=== PATIENT | male | born 1940 | race Caucasian/White ===

== ENCOUNTER 2019-02-19 13:17 | Emergency (ER) | payer OTHER ==
--- NOTE | 2019-02-19 14:30 | EDPHY ---
General Time Seen by Provider: 02/19/19 14:29 Narrative: CLINICAL IMPRESSION: Left shoulder pain, right hand pain, contusion and skin tear ASSESSMENT/PLAN: Patient is a 78-year-old male with no significant medical history presents to the emergency department complaining of right hand pain and left shoulder pain after sustaining a fall yesterday. Patient is well-appearing, no acute distress. Left shoulder x-ray revealed moderate AC arthropathy, no evidence of fracture dislocation. Right hand x-ray revealed acute bony abnormality. Based on patient's history, suspect he had a right pinky dislocation and successful relocation. His skin tear was cleansed and dressed prior to splint placement. The patient was placed in an ulnar gutter splint, CMS remained intact. There were no findings today to suggest acute fracture, dislocation, compartment syndrome, gaping wounds or neurovascular compromise. The patient is visiting from [place] however is here for a prolonged stay. I gave him a referral for both ortho and a PCP should he want to establish care here. Return precautions discussed. ED PROCEDURES: Procedure: Splint placement. An ulnar gutter splint was applied. After application of the splint I returned and re-examined the patient. The splint was adequately immobilizing the joint and distal to the splint the patient's circulation and sensation was intact. ED COURSE: 1451: X-rays reviewed, no evidence of fracture or acute bony abnormality of either the right hand or left shoulder. CHIEF COMPLAINT: Right hand pain, left shoulder pain HPI: Patient is a 78-year-old male with no significant medical history who presents to the emergency department complaining of right hand pain and left shoulder pain after sustaining a fall yesterday. Patient is visiting from [place], was walking his daughter's dog when he accidentally got pulled hard from the small dog. The dog pulled him in a direction causing his left shoulder to jerk subsequently causing him to trip and fall onto his right hand. He believes that he could have possibly dislocated his pinky as it did look malaligned, it was relocated without difficulty. Pain increases with flexion and extension. Patient took ibuprofen with mild improvement of his discomfort however was concerned as his right hand became very swollen. Patient did not hit his head, there was no loss of consciousness. He is not on any anti-platelet or anticoagulation. He denies hitting his chest or abdomen on the ground. He denies any neck or back pain. He complains of right lateral hand pain with associated swelling, bruising and a skin tear on his palm. Patient also complains of left shoulder pain from a jerking mechanism, he did not land directly on the shoulder. He has full range of motion however does have some discomfort when he lifts it over his head. Denies any numbness or tingling of his extremities. He is up-to-date on his tetanus status. Denies any other injury or concern. ROS: Otherwise negative, please see HPI. PHYSICAL EXAM: General Appearance: Well-developed, well-appearing and in no acute distress. HEENT: Normocephalic, atraumatic. External ears are normal. Nares are clear, oropharynx is clear and mucosa is moist. Dentition is normal, there is no malocclusion or mandibular tenderness. Neck: Neck is supple with full range of motion, he has no tenderness to palpation of the midline cervical spine or paraspinal muscles. Back: No step-off, palpable bony abnormality, edema, erythema or ecchymosis of the thoracic or lumbar spines. Both the thoracic and lumbar spines are nontender, all spines full range of motion. 5/5 and equal strength of the UEs and LEs bilaterally including shoulder shrug. Pulses: 2+ and equal radial, DP and PT pulses bilaterally. Sensation intact and symmetric to light touch from face, UEs and LEs bilaterally. Straight leg raise negative bilaterally. Respiratory: There are no retractions, lungs are clear to auscultation. Cardiac: Regular rate and rhythm, no murmurs or gallops. No evidence of chest trauma. Gastrointestinal: Abdomen is soft, nontender, bowel sounds normal, no masses/ hernia, no rigidity, guarding or focal peritoneal findings. No evidence of abdominal trauma. Skin: Warm, dry, no rashes. Upper Extremities: Right hand with generalized edema overlying the dorsal aspect and palmar aspect of the 3rd 4th and 5th metacarpals. He has tenderness to palpation along the 4th metacarpal and into the 4th and 5th MCP joints. There is a 2 cm very superficial skin tear just proximal to the 5th MCP P on the palmar aspect. Patient has no carpal pain, no anatomical snuffbox pain. Forearm is nontender and soft. Elbow nontender with full range of motion. Right shoulder with very superficial abrasion on the lateral aspect, nontender with full range of motion. Left shoulder with generalized tenderness to palpation, no obvious deformity, ecchymosis or abrasions. He has full range of motion and strength, experiences most pain when he reaches above his head. Left upper extremities otherwise unremarkable, nontender with full range of motion. Bilateral nerve exam was performed: The radial, ulnar and median nerves were all tested. Radial nerve: Patient is able to extend wrist and fingers of the local joints. Ulnar nerve: Patient is able to abduct all fingers. Median nerve patient is able to oppose thumb to pinky. Lower Extremities: Intact distal pulses, No edema, No tenderness, No cyanosis, full range of motion intact, No calf tenderness bilaterally. Neuro: Alert and oriented x3, Cranial nerves 2-12 grossly intact. No focal deficit. Psych: Normal mood, normal affect. No agitation. MEDICAL DECISION MAKING: Patient was seen independently. Secondary supervising physician at time of evaluation was Dr. Cobos, she did not evaluate this patient. Diagnosis: Left shoulder pain, right hand pain, contusion and skin tear. Summary: See Assessment and Plan for summary of ED visit Independent visualization of images, tracing, or specimens: Yes. Decision to obtain medical records or history from someone other than the patient: No Review / Summarize previous medical records: None available Discussed patient with another provider: Yes, Dr. Cobos Patient Progress: Stable, discharge. - History Smoking Status: Never smoked - Objective Vital Signs: Initial Vital Signs Temperature (C) 36.9 C 02/19/19 13:45 Heart Rate 61 02/19/19 13:45 Respiratory Rate 18 02/19/19 13:45 Blood Pressure 143/66 H 02/19/19 13:45 O2 Sat (%) 97 02/19/19 13:45 O2 Delivery Mode Room Air Allergies/Adverse Reactions: No Known Allergies Allergy (Unverified 02/19/19 13:44) Home Medications: Medication Instructions Recorded Gabapentin 02/19/19 Hydrocodone/APAP 5/325 [[place] 1 tab PO Q6 PRN #6 tab 02/19/19 5/325 (*)] Medications Given: Discontinued Medications Tetracaine/Epinephrine/Lidocaine (Let Gel Topical) 1 ea TP EDNOW ONE Stop: 02/19/19 15:25 Last Admin: 02/19/19 15:26 Dose: 1 ea Departure - Departure Disposition: Home, Routine, Self-Care Clinical Impression: Hand pain, right, Hand contusion, Shoulder pain, acute, Skin tear of hand without complication Instructions: Contusion in Adults (ED) Additional Instructions: DISCHARGE INSTRUCTIONS FROM YOUR PROVIDER Thank you for visiting our emergency department today. Please keep in mind that discharge from the emergency department does not mean that there is nothing wrong - it simply means that we have not identified an emergency condition that requires further evaluation or treatment in the hospital. You should always plan to follow up with primary care for re-evaluation of your condition in the next 2-3 days. Rest, ice (on and off), elevate the wrist and hand as possible above the level of the heart to decrease pain and swelling. Wear the splint as applied. Do not remove splint and do not get it wet. In regards to her shoulder, range of motion as tolerated. It is possible that you may need additional imaging to include an MRI. It is important that you follow up with Orthopedic surgery. Rest, no heavy lifting, pushing, pulling, carrying with the affected arm. Apply ice on and off to the painful area, whichever feels better. Gentle range of motion exercises several times daily to prevent your shoulder from stiffening up -- pendulum exercises as we discussed. Avoid prolonged immobilization as we discussed as shoulder injuries are prone to "frozen shoulder" which is a significant complication and requires intensive physical therapy to rehabilitate. For pain control: You may take Tylenol, I recommend 500-1000 mg every 6-8 hours as needed. Take with food and a full glass of water. Stop taking if this is upsetting you stomach. Do not exceed 4000 mg in a 24 hr period. You may also take ibuprofen, recommend 400 mg every 8 hr. Take with food and a full glass of water. Stop taking if this upsets your stomach. Do not exceed 2400 mg in a 24 hr period. Take norco as prescribed if needed for pain. Do not take this medication with tylenol or other tylenol-containing medications. Do not take this medication while you are drinking alcohol, driving, working, supervising persons or operating machinery. This medication can make you sleepy. You may need to take a stool softener, such as Colace, which is available [id number], while you take this narcotic pain medicine, as it may make you constipated. Continue your regular medications as prescribed. Return for increased pain or swelling, numbness, tingling or weakness of the fingers, discoloration of the fingers, fever,inability to move your fingers or any other new, worsening or worrisome symptoms. People present with illnesses and injuries in different ways, and it is always possible that we have missed something. Again, thank you for choosing our emergency department. We hope that you feel better. Referrals: ABIOLA ECHEVARRIA [Other] - As per Instructions Devonte Hand DO [Doctor of Osteopathy] - As per Instructions (If you plan to stay in this area, please establish care with a primary care provider.) Isaac Dias MD [Medical Doctor] - 2-3 days, call for appt. (Please call to schedule an appointment and follow up with Orthopedic surgery.) Prescriptions: Hydrocodone/APAP 5/325 [[place]way 5/325 (*)] 1 tab PO Q6 PRN #6 tab PRN Reason: Pain, Moderate
[2019-02-19] MEDS ORDERED: LET GEL TOPICAL 1 EA SYR TP ONE (15:24)
[2019-02-19 16:49] VITALS: BP 150/74
== END 2019-02-19 16:45 | disposition home or self-care (01) ==
DX: S40.212A Abrasion of left shoulder, initial encounter (principal); S60.511A Abrasion of right hand, initial encounter; S60.221A Contusion of right hand, initial encounter; W01.0XXA Fall on same level from slipping, tripping and stumbling without subsequent striking against object, initial encounter; Y93.K1 Activity, walking an animal